=== PATIENT | male | born 1930 | race Caucasian/White ===

== ENCOUNTER 2016-08-16 12:57 | Day surgery (SDC) | payer MEDICARE ==
[2016-08-16] VITALS (19 sets, daily range): BP systolic 125–189; BP diastolic 50–91; PULSE 60–88; RESP 12–22; O2SAT 93–100
[~2016-08-16] VITALS: Ht 167.6 cm; Wt 78.2 kg
[~2016-08-16 12:57] MED LIST: AMLO5TAB2 PO; ASPI-628 PO; HYDR-3605 PO; HYDR25TA4 PO; LORA0.5T PO; LORA10CA PO; Levofloxacin 500 mg/100 mL D5W IV SCH; MONT10TA23 PO; OMEP20TA86 PO; PRD5T PO; SIMV20TA4 PO; TRAM50TA2 PO; ZLP5T PO
[2016-08-16] MEDS ORDERED: Dexamethasone 4 mg/mL Inj ONE (12:58)
[2016-08-16] MEDS ORDERED: Propofol 10,000 mCg/mL 20 mL Inj ONE (12:58)
[2016-08-16] MEDS ORDERED: EPHEDrine/NS 5 mg/mL 5 mL Syringe ONE (12:58)
[2016-08-16] MEDS ORDERED: Ondansetron 2 mg/mL 2 mL Inj ONE (12:58)
[2016-08-16] MEDS ORDERED: fentaNYL-PF 50 mCg/mL 2 mL Inj ONE (12:58)
[2016-08-16] MEDS: Lactated Ringer's 1,000 ML IV SCH ×2 (13:29→15:47)
[2016-08-16] MEDS ORDERED: MELA3TAB35 PO (13:57)
[2016-08-16] MEDS ORDERED: AMIT10TA6 PO (13:57)
[2016-08-16] MEDS ORDERED: ACET325T51 PO (14:00)
[2016-08-16] MEDS ORDERED: POTA-64 PO (14:00)
[2016-08-16] MEDS ORDERED: LACT1CAP73 PO (14:00)
[2016-08-16] MEDS ORDERED: FERR240T9 PO (14:00)
[2016-08-16] MEDS ORDERED: NITR100 PO (14:00)
[2016-08-16] MEDS ORDERED: FURO40TA4 PO (14:00)
[2016-08-16] MEDS ORDERED: CHOL100043 PO (14:00)
[2016-08-16] MEDS ORDERED: ASPI-973 PO (14:01)
[2016-08-16] MEDS ORDERED: Belladonna Alk-Opium 60 mg Rectal Suppository RECTAL ONE ×2 (15:34→16:10)
[2016-08-16] MEDS ORDERED: Lactated Ringer's 500 ML IV PRN (16:13)
[2016-08-16] MEDS ORDERED: Lactated Ringer's 1,000 ML IV SCH (16:13)
--- NOTE | 2016-08-16 16:13 | PCM.HPANE ---
Patient Data Surgeon Admitting Provider: Attending Provider:Kavya Stiles MD [facility] Provider:Santosh Odell Anesthesia Reason for Visit Bladder Mass, Bladder Stone Ht/WT & BMI Height (Feet): 5 Height (Inches): 7 Weight (Kilograms): 78.47 Body Mass Index 27.00 Allergies Coded Allergies: Penicillins (Verified Allergy, Unknown, 10/29/14) hydrocortisone (Verified Allergy, Unknown, 10/30/14) Patient does not remember exact reaction to medication hydroxychloroquine (Verified Allergy, Unknown, 10/30/14) Patient does not remember adverse reaction neomycin (Verified Allergy, Unknown, 10/30/14) Patient does not remember exact adverse reaction to med oxycodone (Verified Allergy, Unknown, 10/30/14) Patient does not remember exact reaction to this med polymyxin B (Verified Allergy, Unknown, 10/30/14) Patient does not remember exact adverse reaction to med TAPE (Verified Adverse Reaction, Mild, Rash,Itching,, 10/30/14) Past Anesthesia History Anesthesia History: Positive for:: Anesthesia Reactions (HAS A HARD TIME WAKING UP) Diabetes History Hx Diabetes?: No MRSA MRSA: No Medications Blood Thinner: Aspirin Hypertension Medication: Yes Home Meds Incl Beta Renita: No Reported Medications Aspirin 81 Mg Lmueyc61 Mg PO DAILY Ref 0 08/16/16 Nitrofurantoin Monohyd/M-Cryst (MacroBid)100 Mg Itfmjkl202 Mg PO BID Ref 0 08/16/16 Cholecalciferol (Vitamin D3) (Vitamin D)1,000 Unit Tablet2,000 Unit PO DAILY #1 BOTTLE Ref 0 08/16/16 Lactobacillus Combo No.11 (Probiotic)1 Each Cap.sprink1 Each PO DAILY 08/16/16 Acetaminophen 325 Mg Jsabfm243 Mg PO Q6 PRN For Fever Ref 0 08/16/16 Ferrous Gluconate (Iron)240 Mg Oxltvb138 Mg PO DAILY 08/16/16 Potassium Chloride ER (K-Tab ER)20 Meq Mklypw05 Meq PO DAILY 08/16/16 Furosemide 40 Mg Ofckwg64 Mg PO DAILY 08/16/16 Amitriptyline 10 Mg Bseycb88 Mg PO HS Ref 0 08/16/16 Melatonin 3 Mg Tablet6 Mg PO HS 08/16/16 Omeprazole 20 Mg Tablet.dr20 Mg PO DAILY 30 Days 10/29/14 Prednisone (PredniSONE)5 Mg Tab5 Mg PO DAILY Ref 0 10/29/14 Simvastatin 20 Mg Mpmrcy89 Mg PO HS 30 Days Ref 0 10/29/14 Amlodipine 5 Mg Tablet5 Mg PO DAILY 30 Days Ref 0 10/29/14 Discontinued Reported Medications Lorazepam 0.5 Mg Tablet0.5 Mg PO TID PRN For Anxiety Ref 0 08/14/16 Loratadine (Claritin)10 Mg Dbfivbe84 Mg PO DAILY Ref 0 08/14/16 Montelukast 10 Mg Rkdtrq44 Mg PO HS 30 Days Ref 0 10/29/14 Tramadol 50 Mg Kzhjlf10 Mg PO TID PRN For Pain Ref 0 10/29/14 Zolpidem (Ambien)5 Mg Tab5 Mg PO HS PRN For Insomnia 30 Days Ref 0 10/29/14 Aspirin (Aspir 81)81 Mg Tablet.dr81 Mg PO DAILY Ref 0 10/29/14 HydrOXYzine HCl 10 Mg Sfegvc17-31 Mg PO HS PRN For Itching Ref 0 10/29/14 Hydrochlorothiazide 25 Mg Jcfekp56 Mg PO DAILY 30 Days Ref 0 10/29/14 Furosemide 20 Mg Tab20 Mg PO DAILY 30 Days Ref 0 10/29/14 Discontinued Scripts Hydromorphone (Dilaudid)2 Mg Tablet2 Mg PO Q4H PRN Pain #10 TABLET Prov:Zachery Orozco DO 09/19/15 History History of ENT Problems?: Yes HEENT History: Positive for:: Cataracts Dysphagia (post cervical surgery) Sinus Problem (LINGERLING COLD) Denture Type: Full- Upper Partial- Lower Cardiovascular History: Positive for:: Cardiac Surgery (stent) Edema Hypertension Denies:: Chest Pain Congestive Heart Failure Heart Murmur Irregular Heartbeat Pacemaker Thrombophlebitis Other Cardiac History: currently >4 METS Hx of Respiratory Problem?: No Hx Neurologic Problems?: No Hx of GI Problems?: Yes Gastrointestinal History: Positive for:: Gastroesphageal Reflux Denies:: Diverticulitis Gastrointestinal Bleeding Heartburn Hepatitis Hiatal Hernia Rectal Bleeding Hx of Problems?: Yes Genitourinary History: Positive for:: Kidney Stones (prevents with HCTZ) Urinary Tract Infection Denies:: HX of Hemodialysis HX of Peritoneal Dialysis: No Other Pertinent History: bladder turmor CURRENT [facility] C[facility] Male Hx: Positive for:: Prostate Problems Denies:: Scrotal Mass Testicular Surgery Skin History: Positive for:: History Skin Disorders? (systemic mastocytosis with rash & itching) Denies:: Pressure Ulcers Hx Musculoskeletal Problems?: Yes Musculoskeletal History: Positive for:: Back Injury (spinal stenosis lumbar and cervical) Musculoskeletal Trauma (FX ELBOW) Osteoarthritis Denies:: Joint Replacement Hx of Psycho/Social Problems?: Yes Psycho Social History: Positive for:: Hx Depression (and insomnia due to itching) Denies:: Anxiety Bipolar Disorder Suicide Attempt Hx Surgeries?: Yes (stents, cervical fusions x2, kidney stones, appendectomy, low back surgery) Hx Any Other Health Problems?: Yes Other History: Positive for:: Cancer (skin ca removed, bladder) Hospitalization Denies:: Thyroid Disease Hx Diabetes: No Hx Alcohol Use: NoHx Substance Use: No Smoking Status: Former Smoker Stop/Bang S-Snoring: Do You Snore Loudly: Yes T-Tired: feel tired, fatigued: Yes O-Obsered: Observed not breath: No P-Blood Pressure: treated: Yes B- Body Mass Index > 35 kg/m2: No A- Age over 50: Yes N- Neck Large Circumference: No G- Gender Male: Yes ABEL Total Score: 5 ABEL Risk Assessment: High Risk, =/>3 Yes Risk Assessment Category Category 1A: Patient has history of documented sleep apnea, and HAS NOT received any narcotic, sedative or anesthesia administration during this stay. Category 1B: Patient has history of documented sleep apnea, and HAS received any narcotic , sedative or anesthesia administration during this stay Category 2: Patient has SUSPECTED Obstructive Sleep Apnea, and HAS received any narcotic , sedative or anesthesia administration during this stay. Category 3: Patient has SUSPECTED Obstructive Sleep Apnea and HAS NOT received narcotic, sedative or anesthesia administration during this stay. Category 4: Outpatient in Procedural Areas with known sleep apnea or who screen positive for High Risk via the STOP/BANG questionnaire. Exam Exam Vital Signs Vital Signs Date Time Temp Pulse Resp B/P Pulse Ox O2 Delivery O2 Flow Rate FiO2 08/16/16 13:31 36.6 61 18 125/50 95 Room Air General Appearance: Alert, Oriented X3, Cooperative, No Acute Distress HEENT/AIRWAY: MP 2 Lungs: Clear to Auscultation, Normal Air Movement Heart: Exam Unremarkable, Regular Rate/Rhythm, No Murmurs/Rubs/Gallops Meds/Labs/Diagnostics Admission Meds Current Medications Lactated Ringer's (Lr) 1,000 ml @ 120 mls/hr Q8H20M IV Last administered on t 13:29; Start 08/16/16 at 05:00; Stop 08/16/16 at 13:19; Status DC Plan Impression Patient chart reviewed, patient interviewed and anesthestic plan with risks, benefits, and alternatives discussed, and informed consent obtained. NPO Status: FOOD 08/15/16/ DM CRANBERRY JUICE AT 0900 08/16/16 ASA Physical Status: ASA3 Severe Disease Anesthetic Plan: GA Bene/Risks/Altern/Consents: Yes HP Complete Prior to Induction: Yes Segun Ramos MD Aug 16, 2016 13:36
[2016-08-16] MEDS ORDERED: Ondansetron 2 mg/mL 2 mL Inj IVPUSH PRN (16:15)
[2016-08-16] MEDS ORDERED: EPHEDrine Sulfate 50 mg/mL Inj IVPUSH PRN (16:15)
[2016-08-16] MEDS ORDERED: Atropine 0.4 mg/mL Inj IVPUSH PRN (16:15)
[2016-08-16] MEDS ORDERED: MetoCLOpramide 5 mg/mL 2 mL Inj IVPUSH PRN (16:15)
[2016-08-16] MEDS ORDERED: hydrALAZINE 20 mg/mL Inj IVPUSH PRN (16:15)
[2016-08-16] MEDS ORDERED: Labetalol 5 mg/mL 4 mL Inj IV PRN (16:15)
[2016-08-16] MEDS ORDERED: Phenylephrine 10,000 mCg/mL Inj IVPUSH PRN (16:15)
[2016-08-16] MEDS ORDERED: Phenazopyridine 97.5 mg Tablet PO PRN (17:05)
[2016-08-16] MEDS ORDERED: HYDROcodone-APAP 5-325 mg Tablet PO PRN (17:05)
[2016-08-16] MEDS ORDERED: Ondansetron 8 mg ODT Tablet PO PRN (17:05)
--- NOTE | 2016-08-16 17:06 | PCM.ANEP1 ---
Post Anesthesia Phase 1 PACU Phase 1 Assessment Vital Signs Vital Signs Date Time Temp Pulse Resp B/P Pulse Ox O2 Delivery O2 Flow Rate FiO2 08/16/16 13:31 36.6 61 18 125/50 95 Room Air Anesthetic Administered: GA Level of Alertness: Sleepy, easy to arouse VALENTINO's with Equal Strength: Yes Pain: No Nausea or Vomiting: No Oxygen Delivery: Simple Mask Lungs: Clear to Auscultation, Normal Air Movement Summary VSS Segun Ramos MD Aug 16, 2016 17:06
--- NOTE | 2016-08-16 17:07 | PCM.ANEP2 ---
Post Anesthesia Evaluation ASA/CMS Post Anesthesia VS in Patient's Normal Range?: Yes Resp Stable; Airway Patent?: Yes CV Function & Hydration Stable: Yes Mental Status Recovered?: Yes Pain control Satisfactory?: Yes N/V Control Satisfactory?: Yes Segun Ramos MD Aug 16, 2016 17:07
[2016-08-16] MEDS: fentaNYL-PF 50 mCg/mL 2 mL Inj IVPUSH PRN ×4 (17:24→18:21)
[2016-08-16] MEDS: HYDROmorphone 1 mg/mL Inj IVPUSH PRN ×6 (17:25→18:22)
--- NOTE | 2016-08-17 15:59 | OP ---
[address] [address] OPERATIVE REPORT PATIENT: LURDES HILL : 1930 MR#: [id number] ADMIT: 08/16/2016 JOB ID: [id number] DATE OF SURGERY: 08/16/2016 PROCEDURE NAME: Transurethral resection and cauterization of bladder tumor and bladder erythema. SURGEON: Kavya Stiles MD. ANESTHESIA: General. PROCEDURE: 1 TURBT/cauterization of bladder erythema >5cm total size PREOPERATIVE DIAGNOSIS(ES): 1. Known high-grade noninvasive bladder cancer. 2. History of gross hematuria with clot retention. 3. History of bladder stone. 4. History of urinary tract infection. 5. History of blood transfusion. POSTOPERATIVE DIAGNOSIS(ES): 1. Known high-grade noninvasive bladder cancer. 2. History of gross hematuria with clot retention. 3. History of bladder stone. 4. History of urinary tract infection. 5. History of blood transfusion. INDICATIONS: The patient is an 85-year-old gentleman presenting some weeks prior with profound clot retention. Found to have a 2.5 cm bladder stone, urinary tract infection and severe hemorrhagic cystitis. A difficult clot evac was performed. 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 The patient recovered slowly from his transfusion and hospitalizations. Was kept at a snf facility for a period of time, and presents now for formal cystoscopy with re-resection of tumor base and visualization. PROCEDURE IN DETAIL: After appropriate informed consent was obtained, the patient was brought to the operating room. He received IV antibiotics prior to onset of the procedure. He was on culture-directed antibiotics, and he had indwelling Segal catheter in place since his discharge from [facility]. Urine was clear. SCD were placed. Adequate general anesthesia induced. He was carefully placed in dorsal lithotomy position. All pressure points carefully padded. Cleaned, prepped, and draped in the usual sterile fashion, and the Segal catheter had been removed. The rigid scope was introduced into the patient's bladder, which was surveyed with 30 and 70-degree lenses. Found to be grossly trabeculated with some cellules and with some diverticula. There was predominantly left-sided severe erythema with some cautery artifact and scarring, also scarring of the bladder neck where he had been cauterized with his hemorrhagic cystitis in the past. We re-entered with the resectoscope and took samples of an area of 5-6 cm in size with the cutting loop. The cautery was used for hemostasis. The bladder was irrigated out. Hemostasis was quite good. A 20-Macedonian Segal catheter was replaced. Urine was clear to irrigation pink to light red. He tolerated the procedure very well. Total area resected and treated was over 5 cm in size. The specimens were handed off for permanent pathology. He was awakened and taken in stable condition to the postanesthesia care unit. Will keep the Segal in place. He is on culture-directed antibiotics for another week. BRANDON
--- NOTE | 2016-08-18 14:51 | PATH ---
SURGICAL PATHOLOGY Attending Physician:Kavya Stiles MD CASE STATUS: Signed Out PATIENT NAME: LURDES HILL PID: [id number] : 1930 DATE COLLECTED:08/16/2016 23:50 SPECIMEN: Bladder Neck CLINICAL HISTORY: BLADDER MASS, ERYTHEMA 1). BLADDER + BLADDER NECK BIOPSIES FINAL DIAGNOSIS: 1.MULTIPLE TISSUE FRAGMENTS FROM URINARY BLADDER, INCLUDING BLADDER NECK (TRANSURETHRAL RESECTION): FLAT HIGH-GRADE UROTHELIAL CARCINOMA IN SITU WITH ASSOCIATED PROMINENT CHRONIC INFLAMMATION AND FIBROUS SCARRING. NEGATIVE FOR EVIDENCE OF INVASION OF LAMINA PROPRIA. MUSCULARIS PROPRIA PRESENT AND NEGATIVE FOR MALIGNANCY. ICD10 CODE C67.5 GROSS DESCRIPTION: The specimen is received in one formalin filled container labeled with the patient's name, sublabeled "bladder and bladder neck" and consists of multiple portions of tissue which aggregate to 2.0 x 2.0 x 0.5 CM. The specimen is entirely submitted in 2 cassettes. 08/17/2016 DAC MICRO DESCRIPTION: Sections are of multiple tissue fragments stated to be from the bladder neck region. The tissue consists of smooth muscle consistent with muscularis propria, as well as lamina propria and some residual urothelium. The urothelium shows changes of flat high-grade urothelial carcinoma in situ; however, definite invasion of the lamina propria is not noted. There is also prominent chronic inflammation as well as fibrous scarring, and in focal areas the inflammatory reaction includes some multinucleated giant cells of the foreign body type. There is no evidence of invasion into the muscularis propria. ICD-9 CODES: CPT CODES: 1: 92927 Electronically Signed Out Bartolo Nicole MD Formerly [facility] [address], [place] [address] Technical component performed at [facility], [address] [place] [address] Ave[address], [place], [address]
== END 2016-08-16 23:59 | disposition home or self-care (01) ==
LOC: SAS 12:57
PROVIDERS: ATTEND Urology
DX: C67.3 Malignant neoplasm of anterior wall of bladder (principal); N40.1 Benign prostatic hyperplasia with lower urinary tract symptoms; R31.9 Hematuria, unspecified; I10 Essential (primary) hypertension; G47.33 Obstructive sleep apnea (adult) (pediatric); E78.5 Hyperlipidemia, unspecified; K21.9 Gastro-esophageal reflux disease without esophagitis; F32.9 Major depressive disorder, single episode, unspecified; I71.4 Abdominal aortic aneurysm, without rupture; Z79.82 Long term (current) use of aspirin; Z87.891 Personal history of nicotine dependence; Z87.448 Personal history of other diseases of urinary system; Z87.440 Personal history of urinary (tract) infections
CPT/HCPCS: 52240; J1100; J1170; J2405; J3010; J7120

== ENCOUNTER 2016-10-04 15:24 | Emergency (ER) | payer MEDICARE ==
[~2016-10-04 15:24] MED LIST changes: +ACET325T51 PO; +AMIT10TA6 PO; -ASPI-628 PO; +ASPI-973 PO; +CHOL100043 PO; +FERR240T9 PO; +FURO40TA4 PO; -HYDR-3605 PO; -HYDR25TA4 PO; +LACT1CAP73 PO; -LORA0.5T PO; -LORA10CA PO; -Levofloxacin 500 mg/100 mL D5W IV SCH; +MELA3TAB35 PO; -MONT10TA23 PO; +NITR100 PO; +POTA-64 PO; -TRAM50TA2 PO; -ZLP5T PO
[2016-10-04 15:46] VITALS: BP 123/63; PULSE 60; RESP 16; O2SAT 95
--- NOTE | 2016-10-04 15:58 | ED.REPORT ---
HPI-Extremity Problem Upper Date of Service Oct 04, 2016 ED Provider: Greta Lao History of Present Illness: right hand sore, woke up with it. opened a jar of jelly the day before , present for 3 days. on prednisone 5 mg daily, on it for 5 years for PMR. [facility] points to wrist as greatest pain. no labs. 02/08 now a 10/09 no medications for pain. Nursing Notes Stated Complaint: INJURED RIGHT WRIST Chief Complaint: Extremity Trauma Nursing Notes Reviewed: Yes Allergies: Coded Allergies: Penicillins (Verified Allergy, Unknown, 10/04/16) hydrocortisone (Verified Allergy, Unknown, 10/04/16) Patient does not remember exact reaction to medication hydroxychloroquine (Verified Allergy, Unknown, 10/04/16) Patient does not remember adverse reaction neomycin (Verified Allergy, Unknown, 10/04/16) Patient does not remember exact adverse reaction to med oxycodone (Verified Allergy, Unknown, 10/04/16) Patient does not remember exact reaction to this med polymyxin B (Verified Allergy, Unknown, 10/04/16) Patient does not remember exact adverse reaction to med TAPE (Verified Adverse Reaction, Mild, Rash,Itching,, 10/04/16) Scheduled Amitriptyline (Amitriptyline) 10 Mg Tablet 20 MG PO HS Amlodipine (Amlodipine) 5 Mg Tablet 5 MG PO DAILY Aspirin (Aspirin) 81 Mg Tablet 81 MG PO DAILY Cholecalciferol (Vitamin D3) (Vitamin D) 1,000 Unit Tablet 2,000 UNIT PO DAILY Ferrous Gluconate (Iron) 240 Mg Tablet 247 MG PO DAILY Furosemide (Furosemide) 40 Mg Tablet 40 MG PO DAILY Lactobacillus Combo No.11 (Probiotic) 1 Each Cap.sprink 1 EACH PO DAILY Melatonin (Melatonin) 3 Mg Tablet 6 MG PO HS Nitrofurantoin Monohyd/M-Cryst (MacroBid) 100 Mg Capsule 100 MG PO BID Omeprazole (Omeprazole) 20 Mg Tablet.dr 20 MG PO DAILY Potassium Chloride ER (K-Tab ER) 20 Meq Tablet 20 MEQ PO DAILY Prednisone (PredniSONE) 5 Mg Tab 5 MG PO DAILY Simvastatin (Simvastatin) 20 Mg Tablet 20 MG PO HS Scheduled PRN Acetaminophen (Acetaminophen) 325 Mg Tablet 650 MG PO Q6 PRN PRN For Fever General Time Seen by MD: 15:57 Chief Complaint Wrist injury right Hx Obtained From: Patient Onset Occurred: 3 days ago Symptom Duration: Since onset Past Medical History Past Medical History Notes: PCP Dr. Corin Melvin at [facility] Was seen at [facility] for spinal stenosis in 04/2014 Past Medical History CAD with MS s/p stents x 2 PMR on chronic Prednisone 15mg daily Chronic LBP and neck pain Mastocytosis HTN HL Past Surgical History Neck surgery x2 Coronary stents Smoking History Former Smoker Social History Alcohol Use: Denies alcohol use Drug Use: Denies drug use Other Social History: Good social support, Ambulatory Status Cane Review of Systems Basic Review of Systems Eyes: Vision NL, No discharge : No dysuria, No frequency Psychiatric: Normal thought content Physical Exam Initial Vital Signs Vital Signs (First) Date Time Temp Pulse Resp B/P Pulse Ox O2 Delivery O2 Flow Rate FiO2 10/04/16 15:46 36.9 60 16 123/63 95 Room Air Initial VS: Reviewed, Vital signs normal General/Constitutional: Well-developed, Well-nourished Head / Eyes: Atraumatic, Normocephalic, PERRL ENT: Mucous membranes moist, Conjunctiva normal, No scleral icterus Neck: Supple, Non-tender, Full range of motion Respiratory: Breath sounds normal, Clear to auscultation, No respiratory distress Cardiovascular: Regular rate & rhythm, Heart sounds normal, Intact distal pulses Abdomen / GI: Soft, Non-tender, No guarding, No rebound, No distention Back: No CVA tenderness Lymphatic: No lymphadenopathy Lower Extremities: Vascular intact, Neuro intact, No swelling, No tenderness Skin: Warm, Dry, No cyanosis Neurologic: Alert, Oriented, Nonfocal Psychiatric: Mood/affect normal, Behavior normal, Normal thought content General/Constitutional: Awake, Alert, No acute distress, Well appearing, Well developed, Well hydrated Respiratory / Chest: Atraumatic, Breath sounds NL, Breath sounds = bilat, No respiratory distress Cardiovascular: Heart rate NL, Regular rhythm, Heart sounds NL, No gallop, No murmurs, No rubs Upper Extremity / MS: Atraumatic, Inspection NL, Full range of motion, No swelling right hand has erthyma over dorsum of hand with extension into 2 fingers and into the wrist. Has full range of motion, sensation intact distally. mild swelling. no sign of lymphanopathy Head / Eyes: Atraumatic, Normocephalic, PERRL, EOMI ENT: Atraumatic, Airway patent, Mucous membranes moist, Pharynx NL Abdomen: Atraumatic, Soft, Non-tender Interpretation & Diagnostics Interpretation & Diagnostics: TECHNIQUE: 4 views of the wrist were acquired. COMPARISON: None. FINDINGS: Bones: No fractures or dislocations. No suspicious bony lesions. There is radiocarpal and carpal carpal joint space narrowing and degenerative change at the first CMC joint. Scaphoid view: The scaphoid is intact. Subchondral cystic changes are present within the scaphoid. Soft tissues: No suspicious soft tissue calcifications. Soft tissue vascular calcifications are noted. IMPRESSION: 1. No acute fracture or dislocation. 2. No definite cortical thinning or other suspicious bony erosions. Although no bony erosions are identified, plain film radiography is relatively insensitive in the acute phases of osteomyelitis and may not demonstrate radiographic changes for 15 days. If acute osteomyelitis is of clinical concern, nuclear medicine regional bone scan or MRI is recommended. 3. Degenerative change. 4. Arterial atherosclerosis. Dictated by: Susan Ortega M.D. on 10/04/2016 at 16:40 Approved by: Susan Ortega M.D. on 10/04/2016 at 16:41 Lab Results Interpretation Result Diagram: 10/04/16 1624 10/04/16 1624 Test 10/04/16 16:24 White Blood Count 6.2th/mm3 (3.8-10.1) Red Blood Count 3.06mil/mm3 (4.40-5.80) Hemoglobin 9.5g/dL (13.8-17.2) Hematocrit 29.3% (41.0-50.0) Mean Corpuscular Volume 95.8fL (81-100) Mean Corpuscular Hemoglobin 31.0pg (27.0-35.0) Mean Corpuscular Hemoglobin Concent 32.4% (32.0-37.0) Red Cell Distribution Width 24.2% (12.3-15.4) Platelet Count 386bil/L (150-400) Neutrophils (%) (Auto) 71% (40-74) Lymphocytes (%) (Auto) 11% (14-46) Monocytes (%) (Auto) 5% (4-12) Eosinophils (%) (Auto) 3% (0-5) Basophils (%) (Auto) 1% (0-3) Band Neutrophils % 8% (1-5) Nucleated Red Blood Cells 1/100 WBC (0-24) Sodium Level 137mEq/L (134-144) Potassium Level 3.6mEq/L (3.5-5.2) Chloride Level 98mEq/L (97-108) Carbon Dioxide Level 24mmol/L (18-29) Blood Urea Nitrogen 21mg/dL (8-27) Creatinine 0.81mg/dL (0.76-1.27) Estimat Glomerular Filtration Rate 96mL/min (>59) Glucose Level 106mg/dL (60-99) Calcium Level 9.2mg/dL (8.5-10.1) Total Bilirubin 0.8mg/dL (0.0-1.2) Aspartate Amino Transf (AST/SGOT) 25U/L (0-50) Alanine Aminotransferase (ALT/SGPT) 16U/L (0-44) Alkaline Phosphatase 44U/L (25-160) Total Protein 6.6g/dL (6.4-8.4) Albumin 4.0g/dL (3.4-5.0) Hold Honeycutt Top Tube Received (Received) X-Ray Interpretation Xray Interpretation: TECHNIQUE: 3 views of the hand(s) acquired. COMPARISON: None. FINDINGS: Bones: No fractures or dislocations. Carpal bones are normally aligned. No suspicious bony lesions. There is a pattern of moderately severe degenerative osteoarthritic change is seen at the interphalangeal joints and base of the first metacarpal no erosive arthritis is found Soft tissues: No suspicious soft tissue calcifications. IMPRESSION: Moderately severe degenerative osteoarthritis, no trauma or erosive arthritis identified. Re-Eval/Medical Decision Med Decision/Clinical Course 86 year old male presents for evualation of right hand erthyma and swelling ongoing for 3 days. denies fall or injury. Labs are unremarkable. informed patient of dx of cellulitis and encouraged patient to return on Sunday for a recheck, sooner if the redness goes outside the line by more than 1 inch. No sign of compartment syndrome or contusion Discharge & Departure Impression: Primary Impression: Cellulitis of hand Disposition: Home Patient Instructions: Cellulitis (ED) Additional Instructions: The x-ray does not show any sign of bony damage. It does show arthritis. The skin is definitely red warm and hot. The area has been outlined timed and dated. Please return for a recheck on Sunday, sooner if the redness goes outside the line by more than 1 inch. Start bactrim in the am and pm for 7 days. You received the first dose in the ER. Elevate as much as possible. Referrals: SRINI MCCONNELLHI HUGO (PCP) EDSupervising Provider for APC: Jose Roberto Holcomb MD copies to: [facility] Greta Lao Oct 04, 2016 15:58
[2016-10-04 16:32] LABS: Mean Corpuscular Volume 95.8 fL (81-100); Platelet Count 386 bil/L (150-400)
--- NOTE | 2016-10-04 16:43 | DRSVH ---
PROCEDURE: X-RAY RIGHT WRIST COMPLETE, MINIMUM THREE VIEWS ([id number]) INDICATIONS: swelling erthyma TECHNIQUE: 4 views of the wrist were acquired. COMPARISON: None. FINDINGS: Bones: No fractures or dislocations. No suspicious bony lesions. There is radiocarpal and carpal ca rpal joint space narrowing and degenerative change at the first CMC joint. Scaphoid view: The scaphoid is intact. Subchondral cystic changes are present within the scaphoid. Soft tissues: No suspicious soft tissue calcifications. Soft tissue vascular calcifications are not ed. IMPRESSION: 1. No acute fracture or dislocation. 2. No definite cortical thinning or other suspicious bony erosions. Although no bony erosions are toya ntified, plain film radiography is relatively insensitive in the acute phases of osteomyelitis and ma y not demonstrate radiographic changes for 15 days. If acute osteomyelitis is of clinical concern, [facility] regional bone scan or MRI is recommended. 3. Degenerative change. 4. Arterial atherosclerosis. Dictated by: Susan Ortega M.D. on 10/04/2016 at 16:40 Approved by: Susan rOtega M.D. on 10/04/2016 at 16:41
--- NOTE | 2016-10-04 16:44 | DRSVH ---
PROCEDURE: X-RAY RIGHT HAND, MINIMUM THREE VIEWS ([id number]) INDICATIONS: swelling erthyma TECHNIQUE: 3 views of the hand(s) acquired. COMPARISON: None. FINDINGS: Bones: No fractures or dislocations. Carpal bones are normally aligned. No suspicious bony lesions . There is a pattern of moderately severe degenerative osteoarthritic change is seen at the interpha langeal joints and base of the first metacarpal no erosive arthritis is found Soft tissues: No suspicious soft tissue calcifications. IMPRESSION: Moderately severe degenerative osteoarthritis, no trauma or erosive arthritis identified. Dictated by: John Marvin M.D. on 10/04/2016 at 16:41 Approved by: John Marvin M.D. on 10/04/2016 at 16:42
[2016-10-04 17:15] LABS: BASOPHILS % (AUTO) 1 % (0-3); EOSINOPHILS % (AUTO) 3 % (0-5); MONOCYTES % (AUTO) 5 % (4-12); NEUTROPHILS % (AUTO) 71 % (40-74)
[2016-10-04] MEDS ORDERED: Trimethoprim-Sulfa 160 mg-800 mg Tablet PO ONE (17:50)
[2016-10-04 18:36] VITALS: BP 144/67; PULSE 68; RESP 18
== END 2016-10-04 18:38 | disposition home or self-care (01) ==
LOC: SED 15:24
DX: L03.113 Cellulitis of right upper limb (principal); X50.1XXA Overexertion from prolonged static or awkward postures, initial encounter; Y93.89 Activity, other specified; Y92.009 Unspecified place in unspecified non-institutional (private) residence as the place of occurrence of the external cause; Y99.8 Other external cause status; I11.9 Hypertensive heart disease without heart failure; I25.10 Atherosclerotic heart disease of native coronary artery without angina pectoris; I25.2 Old myocardial infarction; M35.3 Polymyalgia rheumatica; Z95.5 Presence of coronary angioplasty implant and graft; Z79.82 Long term (current) use of aspirin; Z87.891 Personal history of nicotine dependence; Z88.0 Allergy status to penicillin; Z88.1 Allergy status to other antibiotic agents; Z88.5 Allergy status to narcotic agent; Z91.048 Other nonmedicinal substance allergy status

== ENCOUNTER 2016-10-06 12:38 | Emergency (ER) | payer MEDICARE, OTHER ==
[~2016-10-06] VITALS: Ht 167.6 cm; Wt 78.2 kg
[2016-10-06 12:54] VITALS: BP 123/54; PULSE 71; RESP 10; O2SAT 96
--- NOTE | 2016-10-06 13:03 | ED.REPORT ---
HPI-Recheck W/B/S Date of Service Oct 06, 2016 ED Provider: Doc,Ed MD History of Present Illness: doing much better. Redness resolved swelling decreased. Nursing Notes Stated Complaint: RE-CHECK Chief Complaint: Wound Recheck/Suture Removal Nursing Notes Reviewed: Yes Allergies: Coded Allergies: Penicillins (Verified Allergy, Unknown, 10/04/16) hydrocortisone (Verified Allergy, Unknown, 10/04/16) Patient does not remember exact reaction to medication hydroxychloroquine (Verified Allergy, Unknown, 10/04/16) Patient does not remember adverse reaction neomycin (Verified Allergy, Unknown, 10/04/16) Patient does not remember exact adverse reaction to med oxycodone (Verified Allergy, Unknown, 10/04/16) Patient does not remember exact reaction to this med polymyxin B (Verified Allergy, Unknown, 10/04/16) Patient does not remember exact adverse reaction to med TAPE (Verified Adverse Reaction, Mild, Rash,Itching,, 10/04/16) Scheduled Amitriptyline (Amitriptyline) 10 Mg Tablet 20 MG PO HS Amlodipine (Amlodipine) 5 Mg Tablet 5 MG PO DAILY Aspirin (Aspirin) 81 Mg Tablet 81 MG PO DAILY Cholecalciferol (Vitamin D3) (Vitamin D) 1,000 Unit Tablet 2,000 UNIT PO DAILY Ferrous Gluconate (Iron) 240 Mg Tablet 247 MG PO DAILY Furosemide (Furosemide) 40 Mg Tablet 40 MG PO DAILY Lactobacillus Combo No.11 (Probiotic) 1 Each Cap.sprink 1 EACH PO DAILY Melatonin (Melatonin) 3 Mg Tablet 6 MG PO HS Nitrofurantoin Monohyd/M-Cryst (MacroBid) 100 Mg Capsule 100 MG PO BID Omeprazole (Omeprazole) 20 Mg Tablet.dr 20 MG PO DAILY Potassium Chloride ER (K-Tab ER) 20 Meq Tablet 20 MEQ PO DAILY Prednisone (PredniSONE) 5 Mg Tab 5 MG PO DAILY Simvastatin (Simvastatin) 20 Mg Tablet 20 MG PO HS Scheduled PRN Acetaminophen (Acetaminophen) 325 Mg Tablet 650 MG PO Q6 PRN PRN For Fever General Time Seen by Provider: 13:02 Chief Complaint Wound check Wound / Injury Type: Cellulitis Prior Tx of Wound / Injury: Antibiotics, oral Hx Obtained From: Patient Past Medical History Past Medical History Notes: PCP Dr. Corin Melvin at [facility] Was seen at [facility] for spinal stenosis in 04/2014 Past Medical History CAD with RI s/p stents x 2 PMR on chronic Prednisone 15mg daily Chronic LBP and neck pain Mastocytosis HTN HL Past Surgical History Neck surgery x2 Coronary stents Smoking History Former Smoker Social History Alcohol Use: Denies alcohol use Drug Use: Denies drug use Other Social History: Good social support, Ambulatory Status Cane Review of Systems Basic Review of Systems Eyes: Vision NL, No discharge Hematologic: No bleeding, No bruising Psychiatric: Normal thought content Physical Exam Initial Vital Signs Vital Signs (First) Date Time Temp Pulse Resp B/P Pulse Ox O2 Delivery O2 Flow Rate FiO2 10/06/16 12:54 36.9 71 10 123/54 96 Room Air Initial VS: Reviewed, Vital signs normal General/Constitutional: Well-developed, Well-nourished Head / Eyes: Atraumatic, Normocephalic, PERRL ENT: Mucous membranes moist, Conjunctiva normal, No scleral icterus Neck: Supple, Non-tender, Full range of motion Respiratory: Breath sounds normal, Clear to auscultation, No respiratory distress Cardiovascular: Regular rate & rhythm, Heart sounds normal, Intact distal pulses Abdomen / GI: Soft, Non-tender, No guarding, No rebound, No distention Back: No CVA tenderness Lymphatic: No lymphadenopathy Extremities: Vascular intact, Neuro intact, No swelling, No tenderness Neurologic: Alert, Oriented, Nonfocal Psychiatric: Mood/affect normal, Behavior normal, Normal thought content Rash / Lesion Notes: erthyma resolved as is mild swelling Head / Eyes: Atraumatic, Normocephalic, PERRL, EOMI ENT: Atraumatic, Airway patent, Mucous membranes moist Respiratory / Chest: Atraumatic, Breath sounds NL, Breath sounds = bilat Cardiovascular: Heart rate NL, Regular rhythm, Heart sounds NL Re-Eval/Medical Decision Med Decision/Clinical Course 86 year old male presents for recheck of cellulits of right hand. Seen 2 days ago and started on antibiotics. Has excellent range of motion. redness has resolved as has mild swelling. No sign of compartment syndrome or abscess formation Discharge & Departure Impression: Primary Impression: Cellulitis of hand Disposition: Home Patient Instructions: Cellulitis (ED) Additional Instructions: The cellulitis has greatly improved. Please finish all the antibiotics. You do not need to wear the brace during the day. You can wear it at night for comfort as desired. If this should start to get worse again, return to the ER. I am glad it is better! Referrals: [facility] EDSupervising Provider for APC: Zachery Orozco DO copies to: [facility] Greta Monk Oct 06, 2016 13:03
== END 2016-10-06 13:22 | disposition home or self-care (01) ==
LOC: SED 12:58
DX: L03.113 Cellulitis of right upper limb (principal); I10 Essential (primary) hypertension; I25.2 Old myocardial infarction; Z79.82 Long term (current) use of aspirin; Z87.891 Personal history of nicotine dependence; Z88.0 Allergy status to penicillin; Z88.5 Allergy status to narcotic agent; Z88.8 Allergy status to other drugs, medicaments and biological substances